=== PATIENT | female | born 1985 | race Caucasian/White ===

== ENCOUNTER 2023-12-11 15:09 | Emergency (ER) | payer MEDICARE, MEDICAID, SELFPAY ==
[2023-12-11 15:15] VITALS: BP 138/90; PULSE 91; RESP 18; TEMP 37.2; O2SAT 98; BMI 42.0
--- NOTE | 2023-12-11 15:54 | ED.GENADUL1 ---
HPI - General Adult General Chief complaint: Eye Problems Stated complaint: Eye Redness/Pain Time Seen by Provider: 12/11/23 15:15 Source: patient Mode of arrival: walk-in Limitations: no limitations History of Present Illness HPI narrative: 38 year old Female presents here with chief complaint of worsening conjunctivitis. She states she started with right eye conjunctivitis approximately 2 weeks ago and has now spread into the left eye. She is on amoxicillin and ofloxacin drops. She states the Left eye is worsening. She denies any photophobia. She states that this continues to drain and itches. She does not wear contacts or glasses. denies Foreign body or known injury Related Data Previous Rx's Medication Instructions Recorded tobramycin-dexamethasone 0.3 %-0.1 1 applic ophthalmic (eye) TID #3.5 12/11/23 % eye ointment (TobraDex) grams Allergies Allergy/AdvReac Type Severity Reaction Status Date / Time No Known Drug Allergies Allergy Verified 12/11/23 15:15 Review of Systems ROS Narrative All Systems are negative except as noted/marked.All systems reviewed and otherwise negative Exam Narrative Exam Narrative: All Systems are negative except as noted/marked.All systems reviewed and otherwise negative Nurses note and vital signs reviewed and patient is not hypoxic. General: The patient appears well and in no apparent distress. Patient is resting comfortably on cart. Skin: Warm, dry, no pallor noted. There is no rash noted. Head: Normocephalic, atraumatic Eye: right conjunctiva red, no drainage, left eye red, yellow crusting, with chemosis Ears, Nose, Mouth, and Throat: oral mucosa is moist. Nares patent. Mouth without vesicles. Ear canals patent. Tm's without Erythema Cardiovascular: Regular Rate and Rhythm Respiratory: Patient is in no distress, no accessory muscle use, lungs are clear to auscultation, no wheezing, rales or rhonchi Neurological: A&O x4, normal speech Psychiatric: Cooperative Constitutional Vital Signs, click to edit/add: Last Vital Signs Temp 99 F 12/11/23 15:15 Pulse 91 H 12/11/23 15:15 Resp 18 12/11/23 15:15 BP 138/90 12/11/23 15:15 Pulse Ox 98 12/11/23 15:15 O2 Del Method Room Air 12/11/23 15:15 Course Vital Signs Vital signs: Vital Signs Temperature 99 F 12/11/23 15:15 Pulse Rate 91 H 12/11/23 15:15 Respiratory Rate 18 12/11/23 15:15 Blood Pressure 138/90 12/11/23 15:15 Pulse Oximetry 98 12/11/23 15:15 Oxygen Delivery Method Room Air 12/11/23 15:15 Temperature 99 F 12/11/23 15:15 Pulse Rate 91 H 12/11/23 15:15 Respiratory Rate 18 12/11/23 15:15 Blood Pressure 138/90 12/11/23 15:15 Pulse Oximetry 98 12/11/23 15:15 Oxygen Delivery Method Room Air 12/11/23 15:15 Medical Decision Making MDM Narrative Medical decision making narrative: Here chief complaint of left eye redness irritation and drainage and worsening symptoms of conjunctivitis. Examinations consistent with conjunctivitis left eye was anesthetized with tetracaine and stained with fluorescein stain no uptake is noted. Patient does have chemosis of the left eye as well. She denies ghada photophobia. Explained to patient that we are going to change her eyedrops to TobraDex and she is going to follow-up with an eye physician. She states she was referred to somebody from another facility but that physician was no longer around. Patient will follow-up as discussed. Differential Diagnosis Differential Diagnosis: conjunctivitis , Iritis, chemosis Medical Records Medical records reviewed: Yes I reviewed the patient's medical records Discharge Plan Discharge Stand Alone Forms: Portal Instructions Chief Complaint: Eye Problems Clinical Impression: Acute bacterial conjunctivitis of both eyes Patient Disposition: Home, Self-Care Time of Disposition Decision: 16:01 Condition: Good Mode of Transportation: Private Vehicle Prescriptions / Home Meds: New TobraDex 0.3-0.1 % ointment 1 applic ophthalmic (eye) TID Qty: 3.5 0RF Rx Instructions: space evenly during waking hours Instructions: Conjunctivitis (ED) Referrals: [facility] [Primary Care Provider] - 1 week Discharge Date/Time: 12/11/23 16:17
[2023-12-11] MEDS: FLUORESCEIN SODIUM 1 MG STRIP OP (16:17)
[2023-12-11] MEDS: TETRACAINE HCL 0.5% OP SOL 80 DROP/4 ML BOTTLE OP (16:17)
== END 2023-12-11 16:17 | disposition home or self-care (01) ==
PROVIDERS: Emergency Provider Emergency Medicine
DX: H10.33 Unspecified acute conjunctivitis, bilateral (principal)
CPT/HCPCS: 99284